=== PATIENT | female | born 1985 | race African-American/Black ===

== ENCOUNTER 2017-09-19 01:48 | Emergency (ER) | payer SELFPAY ==
[~2017-09-19] VITALS: Ht 170.2 cm; Wt 114.0 kg
[2017-09-19 02:16] VITALS: BP 132/80
== END 2017-09-19 07:59 | disposition left against medical advice (07) ==
LOC: ER 02:07
DX: Z53.21 Procedure and treatment not carried out due to patient leaving prior to being seen by health care provider (principal)

== ENCOUNTER 2017-09-30 15:23 | Emergency (ER) | payer SELFPAY ==
[~2017-09-30] VITALS: Ht 167.6 cm; Wt 110.0 kg
[2017-09-30 15:25] VITALS: BP 126/84
== END 2017-09-30 22:05 | disposition left against medical advice (07) ==
LOC: ER 15:54
DX: Z00.00 Encounter for general adult medical examination without abnormal findings (principal); Z98.890 Other specified postprocedural states
CPT/HCPCS: 76856; 99284; Z7610; 99283